=== PATIENT | male | born 1965 | race Caucasian/White ===

== ENCOUNTER 2018-06-29 19:25 | Emergency (ER) | payer OTHER, MEDICAID | END 2018-06-29 22:59 | disposition home or self-care (01) | LOC: E/R 19:25 | DX: T85.618A Breakdown (mechanical) of other specified internal prosthetic devices, implants and grafts, initial encounter (principal); R40.2122 Coma scale, eyes open, to pain, at arrival to emergency department; R40.2212 Coma scale, best verbal response, none, at arrival to emergency department; R40.2322 Coma scale, best motor response, extension, at arrival to emergency department; I10 Essential (primary) hypertension; Y75.2 Prosthetic and other implants, materials and neurological devices associated with adverse incidents | CPT/HCPCS: 36415; 99283 ==